=== PATIENT | female | born 1970 | race Caucasian/White ===

== ENCOUNTER → 2018-12-27 | Outpatient (CLI) | payer MEDICARE, OTHER, MEDICAID | LOC: M.RAD 15:26 | DX: J06.9 Acute upper respiratory infection, unspecified (principal); I11.0 Hypertensive heart disease with heart failure; I50.32 Chronic diastolic (congestive) heart failure; K21.9 Gastro-esophageal reflux disease without esophagitis ==

== ENCOUNTER → 2019-03-21 | Outpatient (CLI) | payer MEDICARE, OTHER, MEDICAID ==
--- NOTE | 2019-03-21 17:16 | 2DMMODE ---
[place] [address] 2 D/M-MODE ECHOCARDIOGRAM Name: MINDY CHERRY Room: [facility]#: [id number] Admission: 03/21/19 Attend Phys: Lexx Patterson, Discharge: Date of : 74 Date of Service: 03/21/19 1716 Report #: [id number] THIS REPORT FOR: //name// APPROVED REPORT Study performed: 03/21/2019 12:53:57 EXAM: Comprehensive 2D, Doppler, and color-flow Echocardiogram Patient Location: Out-Patient BSA: 2.71 HR: 63 bpm BP: 120/70 mmHg Other Information Study Quality: Fair Indications Aortic Valve Disease 2D Dimensions IVSd: 19.33 (7-11mm) LVOT Diam: 22.52 (18-24mm) LVDd: 52.81 mm PWd: 14.16 (7-11mm) Ascending Ao: 41.95 (22-36mm) LVDs: 25.34 (25-40mm) Aortic Root: 34.01 mm Volumes Left Atrial Volume (Systole) LA ESV Index: 20.30 mL/m2 Aortic Valve AoV Peak Donald.: 2.80 m/s AO Peak Gr.: 31.40 mmHg LVOT Max P.17 mmHg AO Mean Gr.: 17.72 mmHg LVOT Mean P.25 mmHg LVOT Max V: 1.02 m/s AO V2 VTI: 54.27 cm LVOT Mean V: 0.69 m/s KRISHNA (VTI): 1.86 cm2 LVOT V1 VTI: 25.29 cm Mitral Valve E/A Ratio: 0.57 MV Decel. Time: 391.60 ms MV E Max Donald.: 0.51 m/s MV PHT: 113.56 ms MVA (PHT): 1.94 cm2 [place] [address] 2 D/M-MODE ECHOCARDIOGRAM Name: MINDY CHERRY Room: [facility]#: [id number] Admission: 03/21/19 Attend Phys: Lexx Patterson, Discharge: Date of : 74 Date of Service: 03/21/19 1716 Report #: [id number] TDI E/Lateral E': 7.29 E/Medial E': 10.20 Medial E' Donald.: 0.05 m/s Lateral E' Donald.: 0.07 m/s Pulmonary Valve PV Peak Donald.: 0.94 m/s PV Peak Gr.: 3.54 mmHg Left Ventricle The left ventricle is normal size. There is normal LV segmental wall motion. Mild concentric left ventricular hypertrophy. Left ventricular systolic function is normal. The left ventricular ejection fraction is within the normal range. LVEF is 55-60%. Grade I - abnormal relaxation pattern. Right Ventricle The right ventricle is normal size. The right ventricular systolic function is normal. Atria The left atrium size is normal. The right atrium size is normal. Aortic Valve Mechanical aortic valve is present. Mild aortic regurgitation. There is no aortic valvular stenosis. Mitral Valve The mitral valve is normal in structure. There is no mitral valve regurgitation noted. No evidence of mitral valve stenosis. Tricuspid Valve The tricuspid valve is normal in structure. There is no tricuspid valve regurgitation noted. Pulmonic Valve Pulmonic valve is not well visualized. There is no pulmonic valvular regurgitation. Great Vessels Aortic root is mildly dilated. IVC is normal in size and collapses >50% with inspiration. Pericardium There is no [place] [address] 2 D/M-MODE ECHOCARDIOGRAM Name: MINDY CHERRY Room: [facility]#: [id number] Admission: 03/21/19 Attend Phys: Lexx Patterson, Discharge: Date of : 74 Date of Service: 03/21/19 1716 Report #: [id number] <Conclusion> Mild concentric left ventricular hypertrophy. LVEF is 55-60%. Mechanical aortic valve is present. Mild aortic regurgitation. <ELECTRONICALLY SIGNED> By: Martin Reddy MD, FAC 03/21/191715 15 15 Martin Reddy MD, [facility]
== END ==
LOC: M.CRD 03-19 09:00
DX: I35.1 Nonrheumatic aortic (valve) insufficiency (principal)